=== PATIENT | female | born 1975 | race Caucasian/White ===

== ENCOUNTER 2017-10-29 15:02 | Emergency (ER) | payer OTHER ==
[~2017-10-29] VITALS: Ht 147.3 cm; Wt 99.8 kg
[~2017-10-29 15:02] MED LIST: ACET325 PO; BCP'S; BENZ100A PO; CALCAVITD PO; CEFD300 PO; DIPH50 PO; ERGO400 PO; ESOM20 PO; FAMO20 PO; FAMO40 PO; FISH1000 PO; IBUP200 PO; IBUP400 PO; IBUP800 PO; LANS30EC PO; LEVOTHYROXINE PO; MULVITMIND PO; NORGESTIMATE-E1 EAC1 PO; NORT10 PO; NORT25 PO; Norco 5-325 Ta1 EACH PO; OMEG1CAP30 PO; OMEP20ER PO; OXYACE5T PO; OXYB5 PO; OXYC10ER PO; OXYC5 PO; PRED10 PO; PROACE100 PO; PROC5 PO; PSEU120ER PO; Prinivil10 MG PO; RXLORA1 PO; RXOXYACE PO; Roxicodone5 MG PO; SENN187 PO; SIMV10 PO; SIMV20 PO; SIMV40 PO; TRAM50 PO; TRAZ100 PO; Ultram50 MG PO; VITAMENS; VITB100 PO; Zofran Odt4 MG SL; [UNRECOGNIZED DRUG - OTHER]; [UNRECOGNIZED DRUG - OTHER] PO
[2017-10-29] MEDS ORDERED: Alendronate Sod10 MG PO (15:54)
[2017-10-29] MEDS ORDERED: GABA300 PO (15:54)
[2017-10-29 17:27] LABS: BASOPHILS ABSOLUTE AUTO 0.03 K/mm3 (0.00-0.23); BASOPHILS PERCENT AUTO 0 % (0-2); EOSINOPHILS ABSOLUTE AUTO 0.04 K/mm3 (0.00-0.68); EOSINOPHILS PERCENT AUTO 1 % (0-6); Hematocrit 42.3 % (33.0-51.0); Hemoglobin 13.8 g/dL (11.5-16.0); IMMATURE GRAN ABSOLUTE AUTO 0.02 K/mm3 (0.00-0.10); IMMATURE GRAN PERCENT AUTO 0 % (0-1); LYMPHOCYTES PERCENT AUTO 25 % (21-46); MONOCYTES ABSOLUTE AUTO 0.55 K/mm3 (0.16-1.47); MONOCYTES PERCENT AUTO 7 % (4-13); Mean Corpuscular HGB Conc 32.6 g/dL (31.5-36.5); Mean Corpuscular Volume 89 fL (80-100); Mean Platelet Volume 11.2 fL (9.1-12.4); NEUTROPHILS PERCENT AUTO 68 % (41-73); Platelet Count 248 K/mm3 (150-400); RDW Standard Deviation 42.4 fL (35.1-46.3); Red Blood Cell Count 4.76 M/mm3 (3.80-5.20); White Blood Cell Count 8.44 K/mm3 (4.00-11.30)
[2017-10-29 17:52] LABS: Alanine Aminotransfer (ALT/SGP 22 U/L (12-78); Albumin, Blood 4.1 g/dL (3.4-5.0); Alk Phos 97 U/L (50-136); Anion Gap 8 mmol/L (6-16); Aspartate Aminotrans (AST/SGOT 12 U/L (12-37); Bilirubin, Total 0.4 mg/dL (0.1-1.0); Blood Urea Nitrogen 11 mg/dL (8-24); Bun/Creatinine Ratio 16.4 (12.0-20.0); CO2, Blood 24 mmol/L (21-32); Calcium, Blood 10.1 mg/dL (8.5-10.1); Chloride, Blood 111 mmol/L (98-108); Creatinine, Blood 0.67 mg/dL (0.40-1.00); Globulin, Blood 4.2 g/dL (2.2-4.0); Glomerular Filtration Rate >60 (60-); Glucose, Blood 119 mg/dL (70-99); Potassium, Blood 4.3 mmol/L (3.5-5.5); Sodium, Blood 143 mmol/L (136-145); Total Protein, Blood 8.3 g/dL (6.4-8.2)
[2017-10-29 18:20] LABS: Source, Urine Clean Catch
[2017-10-29 18:24] LABS: Appearance, Urine Clear (Clear); Bilirubin, Urine Neg (Neg); Blood, Urine Neg (Neg); Color, Urine Yellow (P-Yellow); Glucose Qualitative, Urine Neg (Neg); Ketones, Urine Neg (Neg); Leukocyte Esterase, Urine 2+ (Neg); Nitrite, Urine Neg (Neg); Protein, Urine Neg (Neg); Urobilinogen, Urine NORM (Normal)
[2017-10-29 18:39] LABS: Bacteria Rare /hpf; Red Blood Cells, Urine 0-2 /hpf (0-2); Squamous Epithelial Cells Few /hpf (Few)
== END 2017-10-29 19:50 | disposition short-term general hospital (02) ==
LOC: ER 15:02
PROVIDERS: Physician Assistant
DX: R51 Headache (principal); Z88.0 Allergy status to penicillin; Z88.5 Allergy status to narcotic agent; Z88.8 Allergy status to other drugs, medicaments and biological substances; Z88.2 Allergy status to sulfonamides; Z88.1 Allergy status to other antibiotic agents; Z79.899 Other long term (current) drug therapy
CPT/HCPCS: 36415; 70450; 75809; 80053; 81001; 85025; 87086; 93005; 93010; 96361; 96374; 96375; 99285; J1200; J1630; J1885; J7030

== ENCOUNTER → 2019-09-30 | Outpatient (CLI) | payer OTHER ==
[~2019-09-30] MED LIST changes: +Alendronate Sod10 MG PO; +GABA300 PO
== END ==
LOC: LAB SHORT 15:02 → LAB 15:02
DX: R32 Unspecified urinary incontinence (principal)
CPT/HCPCS: 87086

== ENCOUNTER → 2019-10-12 | Outpatient (CLI) | payer OTHER ==
[2019-10-14 15:10] LABS: HPV 16 Negative (Negative); HPV 18 Negative (Negative); HPV OTHER HR TYPES Negative (Negative)
== END | disposition home or self-care (01) ==
LOC: LAB 15:45 → LAB SHORT 15:45
PROVIDERS: Obstetrics & Gynecology
DX: Z01.419 Encounter for gynecological examination (general) (routine) without abnormal findings (principal)
CPT/HCPCS: 87624; G0123

== ENCOUNTER → 2023-07-21 | Outpatient (CLI) | payer OTHER ==
[2023-07-21 17:30] LABS: BASOPHILS ABSOLUTE AUTO 0.03 K/mm3 (0.00-0.23); BASOPHILS PERCENT AUTO 0 % (0-2); EOSINOPHILS ABSOLUTE AUTO 0.11 K/mm3 (0.00-0.68); EOSINOPHILS PERCENT AUTO 1 % (0-6); Hematocrit 45.3 % (33.0-51.0); Hemoglobin 14.8 g/dL (11.5-16.0); IMMATURE GRAN ABSOLUTE AUTO 0.04 K/mm3 (0.00-0.10); IMMATURE GRAN PERCENT AUTO 0 % (0-1); LYMPHOCYTES ABSOLUTE AUTO 2.05 K/mm3 (0.84-5.20); LYMPHOCYTES PERCENT AUTO 23 % (21-46); MONOCYTES ABSOLUTE AUTO 0.55 K/mm3 (0.16-1.47); MONOCYTES PERCENT AUTO 6 % (4-13); Mean Corpuscular HGB 29.2 pg (26.0-34.0); Mean Corpuscular HGB Conc 32.7 g/dL (31.5-36.5); Mean Corpuscular Volume 90 fL (80-100); Mean Platelet Volume 10.5 fL (9.1-12.4); NEUTROPHILS ABSOLUTE AUTO 6.23 K/mm3 (1.96-9.15); NEUTROPHILS PERCENT AUTO 69 % (41-73); Platelet Count 241 K/mm3 (150-400); RDW Standard Deviation 42.3 fL (35.1-46.3); Red Blood Cell Count 5.06 M/mm3 (3.80-5.20); White Blood Cell Count 9.01 K/mm3 (4.00-11.30)
[2023-07-21 17:40] LABS: Albumin, Blood 3.9 g/dL (3.4-5.0); Albumin/Globulin Ratio 0.9 (0.8-1.8); Bilirubin, Total 0.2 mg/dL (0.1-1.0); Bun/Creatinine Ratio 10.6 (12.0-20.0); Calcium, Blood 10.6 mg/dL (8.5-10.1); Creatinine, Blood 0.85 mg/dL (0.40-1.00); Globulin, Blood 4.4 g/dL (2.2-4.0); Potassium, Blood 3.8 mmol/L (3.5-5.5); Total Protein, Blood 8.3 g/dL (6.4-8.2)
== END ==
LOC: LAB 17:24 → LAB SHORT 17:24
PROVIDERS: Physician Assistant
DX: M79.89 Other specified soft tissue disorders (principal)
CPT/HCPCS: 80053; 85025; 85379; 85651; 86140

== ENCOUNTER 2023-07-24 08:02 | Emergency (ER) | payer OTHER ==
[~2023-07-24] VITALS: Ht 149.9 cm; Wt 104.3 kg
[2023-07-24] MEDS ORDERED: AMLO5 PO (08:15)
[2023-07-24] MEDS ORDERED: HYDMOR2 PO (09:45)
[2023-07-24 10:17] VITALS: BP 144/99
== END 2023-07-24 10:35 | disposition home or self-care (01) ==
LOC: ER 08:02
DX: M25.561 Pain in right knee (principal); Z79.899 Other long term (current) drug therapy; Z88.0 Allergy status to penicillin; Z88.2 Allergy status to sulfonamides; Z88.1 Allergy status to other antibiotic agents; Z88.6 Allergy status to analgesic agent; Z88.5 Allergy status to narcotic agent; Z88.8 Allergy status to other drugs, medicaments and biological substances; W01.10XA Fall on same level from slipping, tripping and stumbling with subsequent striking against unspecified object, initial encounter; Y93.89 Activity, other specified
CPT/HCPCS: 73562-RT; 96374; 96375; 96376; 99283-25; A9270

== ENCOUNTER 2023-08-20 08:05 | Emergency (ER) | payer OTHER ==
[~2023-08-20] VITALS: Ht 149.9 cm; Wt 106.6 kg
[~2023-08-20 08:05] MED LIST changes: +AMLO5 PO; +HYDMOR2 PO
[2023-08-20] MEDS ORDERED: ALEN10 PO (09:03)
[2023-08-20] MEDS ORDERED: LEVSOD25 PO (09:03)
[2023-08-20] MEDS ORDERED: NORT25 PO (09:03)
[2023-08-20] MEDS ORDERED: Imitrex25 MG PO (09:04)
[2023-08-20] MEDS ORDERED: NIFE30ER PO (09:04)
[2023-08-20 10:49] LABS: BASOPHILS ABSOLUTE AUTO 0.03 K/mm3 (0.00-0.23); BASOPHILS PERCENT AUTO 0 % (0-2); EOSINOPHILS ABSOLUTE AUTO 0.18 K/mm3 (0.00-0.68); EOSINOPHILS PERCENT AUTO 2 % (0-6); Hematocrit 41.3 % (33.0-51.0); Hemoglobin 13.5 g/dL (11.5-16.0); IMMATURE GRAN ABSOLUTE AUTO 0.04 K/mm3 (0.00-0.10); IMMATURE GRAN PERCENT AUTO 0 % (0-1); LYMPHOCYTES ABSOLUTE AUTO 1.96 K/mm3 (0.84-5.20); LYMPHOCYTES PERCENT AUTO 17 % (21-46); MONOCYTES ABSOLUTE AUTO 0.91 K/mm3 (0.16-1.47); MONOCYTES PERCENT AUTO 8 % (4-13); Mean Corpuscular HGB Conc 32.7 g/dL (31.5-36.5); Mean Corpuscular Volume 89 fL (80-100); Mean Platelet Volume 10.8 fL (9.1-12.4); NEUTROPHILS ABSOLUTE AUTO 8.39 K/mm3 (1.96-9.15); NEUTROPHILS PERCENT AUTO 73 % (41-73); Platelet Count 257 K/mm3 (150-400); RDW Coefficient Variation 13.4 % (11.7-14.2); RDW Standard Deviation 43.5 fL (35.1-46.3); Red Blood Cell Count 4.66 M/mm3 (3.80-5.20); White Blood Cell Count 11.51 K/mm3 (4.00-11.30)
[2023-08-20 11:12] LABS: Albumin, Blood 3.8 g/dL (3.4-5.0); Albumin/Globulin Ratio 0.9 (0.8-1.8); Bilirubin, Total 0.3 mg/dL (0.1-1.0); Bun/Creatinine Ratio 13.5 (12.0-20.0); Calcium, Blood 10.6 mg/dL (8.5-10.1); Creatinine, Blood 0.67 mg/dL (0.40-1.00); Globulin, Blood 4.3 g/dL (2.2-4.0); Potassium, Blood 3.9 mmol/L (3.5-5.5); Total Protein, Blood 8.1 g/dL (6.4-8.2)
[2023-08-20 15:04] LABS: Source, Urine Voided
[2023-08-20 15:14] LABS: Appearance, Urine Clear (Clear); Bilirubin, Urine Neg (Neg); Blood, Urine Neg (Neg); Color, Urine Yellow (P-Yellow); Glucose Qualitative, Urine Neg (Neg); Ketones, Urine Neg (Neg); Leukocyte Esterase, Urine Neg (Neg); Nitrite, Urine Neg (Neg); Protein, Urine 1+ (Neg); Urobilinogen, Urine 1+ (Normal)
[2023-08-20] MEDS ORDERED: LIDO700A20 TOP (18:48)
[2023-08-20] MEDS ORDERED: Methocarbamol500 MG PO (18:48)
[2023-08-20 19:30] VITALS: BP 146/97
== END 2023-08-20 19:55 | disposition home or self-care (01) ==
LOC: ER 08:05
PROVIDERS: Emergency Medicine
DX: R10.9 Unspecified abdominal pain (principal); N20.0 Calculus of kidney; G80.9 Cerebral palsy, unspecified; Z88.0 Allergy status to penicillin; Z88.5 Allergy status to narcotic agent; Z88.2 Allergy status to sulfonamides; Z88.8 Allergy status to other drugs, medicaments and biological substances; Z88.6 Allergy status to analgesic agent; Z79.890 Hormone replacement therapy; Z79.899 Other long term (current) drug therapy
CPT/HCPCS: 74177; 80053; 83690; 84703; 85025; 96361; 96374-59; 96375; 96376; 99284-25; A9270; J2270; J2405; J7030; J7120; P9612; Q9967

== ENCOUNTER 2023-08-22 16:34 | Inpatient (IN) | payer OTHER ==
[~2023-08-22] VITALS: Ht 149.9 cm; Wt 110.5 kg
[~2023-08-22 16:34] MED LIST changes: +ALEN10 PO; +Imitrex25 MG PO; +LEVSOD25 PO; +LIDO700A20 TOP; +Methocarbamol500 MG PO; +NIFE30ER PO
[2023-08-22 17:39] LABS: BASOPHILS ABSOLUTE AUTO 0.05 K/mm3 (0.00-0.23); BASOPHILS PERCENT AUTO 0 % (0-2); EOSINOPHILS ABSOLUTE AUTO 0.09 K/mm3 (0.00-0.68); EOSINOPHILS PERCENT AUTO 1 % (0-6); Hematocrit 44.2 % (33.0-51.0); Hemoglobin 14.1 g/dL (11.5-16.0); IMMATURE GRAN PERCENT AUTO 1 % (0-1); LYMPHOCYTES ABSOLUTE AUTO 1.33 K/mm3 (0.84-5.20); LYMPHOCYTES PERCENT AUTO 9 % (21-46); MONOCYTES ABSOLUTE AUTO 1.63 K/mm3 (0.16-1.47); MONOCYTES PERCENT AUTO 11 % (4-13); Mean Corpuscular HGB 28.7 pg (26.0-34.0); Mean Corpuscular HGB Conc 31.9 g/dL (31.5-36.5); Mean Corpuscular Volume 90 fL (80-100); Mean Platelet Volume 10.7 fL (9.1-12.4); NEUTROPHILS ABSOLUTE AUTO 11.93 K/mm3 (1.96-9.15); NEUTROPHILS PERCENT AUTO 79 % (41-73); Platelet Count 267 K/mm3 (150-400); RDW Coefficient Variation 13.4 % (11.7-14.2); RDW Standard Deviation 43.8 fL (35.1-46.3); Red Blood Cell Count 4.91 M/mm3 (3.80-5.20); White Blood Cell Count 15.13 K/mm3 (4.00-11.30)
[2023-08-22 18:08] LABS: Albumin, Blood 3.6 g/dL (3.4-5.0); Albumin/Globulin Ratio 0.8 (0.8-1.8); Bilirubin, Total 0.6 mg/dL (0.1-1.0); Calcium, Blood 10.6 mg/dL (8.5-10.1); Creatinine, Blood 0.5 mg/dL (0.40-1.00); Globulin, Blood 4.5 g/dL (2.2-4.0); Magnesium, Blood 2.2 mg/dL (1.6-2.4); Potassium, Blood 3.7 mmol/L (3.5-5.5); Total Protein, Blood 8.1 g/dL (6.4-8.2)
[2023-08-23 00:43] LABS: Influenza A, PCR NEGATIVE (NEGATIVE); Influenza B, PCR NEGATIVE (NEGATIVE); Resp Syncytial Virus, PCR NEGATIVE (NEGATIVE); SARS-Cov-2 (COVID-19) PCR, MMC NEGATIVE (NEGATIVE)
[2023-08-23 10:57] LABS: Source, Urine Clean Catch
[2023-08-23 11:12] LABS: Bilirubin, Urine Neg (Neg); Blood, Urine Neg (Neg); Glucose Qualitative, Urine Neg (Neg); Ketones, Urine 4+ (Neg); Leukocyte Esterase, Urine Neg (Neg); Nitrite, Urine Neg (Neg); Protein, Urine 2+ (Neg); Specific Gravity, Urine 1.015 (1.003-1.022); Urobilinogen, Urine 1+ (Normal); pH, Urine 6.5 (5.0-8.0)
[2023-08-23 11:28] LABS: Appearance, Urine Clear (Clear); Color, Urine Yellow (P-Yellow)
[2023-08-23 11:31] LABS: Bacteria Few /hpf; Calcium Oxalate Crystals Rare /hpf; Red Blood Cells, Urine 0-2 /hpf (0-2); Squamous Epithelial Cells Few /hpf (Few)
[2023-08-23 15:22] VITALS: BP 139/104
--- NOTE | 2023-08-23 17:39 | NUR ---
ADMISSION - LATE ENTRY: PT ARRIVED TO MEDICAL FLOOR 304 @1512 VIA GURNEY. AT THAT TIME PT HAD ABX INFUSING AND WAS ON 1L. PT CURRENTLY STILL ON 1L NC MAINTAINING SATS >95%. LIMITED RANGE IN ALL EXTREMETIES. PUREWICK IN PLACE DRAINING YELLOW URINE TO GRAVITY. SCAB ON R. KNEE AND R. ELBOW HEALING. SKIN TEAR FROM FALL ON L. KNEE AND L. ELBOW. DRESSINGS APPLIED TO SKIN TEARS. PHOTOS IN CHART. IN IN VIANEY FLUSHES WELL W/O COMPLICATIONS. PT ON BEDREST AT THIS TIME D/T WEAKNESS, NUMBNESS, AND PT EVAL INCOMPLETE. CALL LIGHT IN REACH. BED IN LOWEST POSITION.
[2023-08-23 19:29] VITALS: BP 131/90
--- NOTE | 2023-08-23 22:07 | NUR ---
DRIVER LICENSE EXAMINER CALL TELEPHONE ORDER FROM FAYE KEARNS DRIVER LICENSE EXAMINER FOR DILAUDID 2MG PO [id number] PRN. PT SAID THAT THIS IS WHAT SHE TAKES AT HOME AND THAT SHE TOLERATES IT WELL. READ BACK DONE AND ORDER ENTERED INTO [employer].
[2023-08-24 03:15] VITALS: BP 142/78
--- NOTE | 2023-08-24 04:42 | NUR ---
SHIFT SUMMARY MS MUSA HAS BEEN ON 1L NC OXYGEN OVERNIGHT. ON CONTINUOUS PULSE OX IN THE LOW 90S WITH HEART RATE CONSISTANTLY ~120BPM. ST, NO CALLS FROM EP SPECIALIST. TURNED AND REPOSITIONED WITH 2 STAFF ASSISTANCE. SHE HAS WEAK WAREHOUSE HELPER TO BOTH HANDS AND SHE SAID THE HAND SWELLING IS UNUSUAL FOR HER. SHE DESCRIBED LOW LEVEL CHRONIC BACK PAIN AND HAS NOT REQUESTED ANY PAIN MEDS OVERNIGHT. BED LOW, CALL LIGHT IN REACH.
[2023-08-24 05:37] LABS: BASOPHILS ABSOLUTE AUTO 0.02 K/mm3 (0.00-0.23); BASOPHILS PERCENT AUTO 0 % (0-2); EOSINOPHILS ABSOLUTE AUTO 0.32 K/mm3 (0.00-0.68); EOSINOPHILS PERCENT AUTO 3 % (0-6); IMMATURE GRAN ABSOLUTE AUTO 0.06 K/mm3 (0.00-0.10); IMMATURE GRAN PERCENT AUTO 1 % (0-1); LYMPHOCYTES ABSOLUTE AUTO 1.84 K/mm3 (0.84-5.20); LYMPHOCYTES PERCENT AUTO 19 % (21-46); MONOCYTES PERCENT AUTO 9 % (4-13); Mean Corpuscular HGB 29.2 pg (26.0-34.0); Mean Corpuscular HGB Conc 32.4 g/dL (31.5-36.5); Mean Corpuscular Volume 90 fL (80-100); NEUTROPHILS ABSOLUTE AUTO 6.44 K/mm3 (1.96-9.15); NEUTROPHILS PERCENT AUTO 67 % (41-73); Platelet Count 252 K/mm3 (150-400); RDW Coefficient Variation 13.5 % (11.7-14.2); Red Blood Cell Count 4.11 M/mm3 (3.80-5.20); White Blood Cell Count 9.58 K/mm3 (4.00-11.30)
[2023-08-24 06:03] LABS: Bun/Creatinine Ratio 16.8 (12.0-20.0); Calcium, Blood 9.6 mg/dL (8.5-10.1); Creatinine, Blood 0.65 mg/dL (0.40-1.00); Potassium, Blood 3.6 mmol/L (3.5-5.5)
[2023-08-24 07:54] VITALS: BP 104/63
[2023-08-24 16:30] VITALS: BP 129/93
--- NOTE | 2023-08-24 18:22 | NUR ---
SHIFT SUMMARY: PT A&O X4. PLEASANT AND COOPERATIVE WITH CARE. PT RECEIVED XR SHUNOGRAM PANEL THIS SHIFT. RESULTS IN CHART. MRI ORDERED FOR SHUNT KINKING AND HX OF HYDROCEPHALUS. WILL LIKELY BE COMPLETED TOMORRROW. PT C/O SWOLLEN HANDS THIS AM. DR. DOVER AWARE. PT ALSO C/O 02/10 HEAD PAIN. MEDICATED PER EMAR. PT UNABLE TO WORK WITH PT THIS SHIFT PT WAS IN IMAGING AT TIME OF ATTEMPT. WILL REATTEMPT TOMORROW. IV IN L. CHEST BAD PRIOR TO ZITHROMAX IV. SHIP SCRAPERNORRIS PLACED POWERGLIDE IN VIANEY. DRAWS WELL, CURRENTLY INFUSING ABX. PUREWICK IN PLACE FOR INCONTINENCE. CALL LIGHT IN REACH. BED IN LOWEST POSITION. WILL REPORT TO ONCOMING RN.
[2023-08-24 20:01] VITALS: BP 168/103
[2023-08-25 04:25] VITALS: BP 162/95
--- NOTE | 2023-08-25 05:18 | NUR ---
PATIENT IS ALERT AND ORIENTED. WITH OXYGEN AT 1 LPM/NASAL CANNULA. ON TELE. NOTED SKIN TEAR ON ELBOWS AND KNEE AND SWEELING OF EXTREMETIES. FOR MRI OF HEAD TODAY. COMPLAINT OF PAIN. NEEDS ATTENDED. POSITIONED COMFORTABLY. SLEPT FAIRLY. CALL LIGHT WITHIN PATIENT'S REACH. WILL CONTINUE TO MONITOR.
[2023-08-25 07:37] VITALS: BP 139/87
--- NOTE | 2023-08-25 13:52 | NUR ---
Upon receiving a referral for spiritual care, I visited the patient. She immediately explains about the medical history, her current medical problems and the plan of care moving forward. She tells me that a transfer to a hospital [place] may be a next step in that care for her neurological issues. She then talks about her strong [employer] roman catholic beliefs and her desire to shine light everywhere that she goes. She also discusses that unless some of the medical issues are resolved she may need to give up some of her housing independence. I normalize her concerns and fears, reinforce her helpful attitudes and persectives and provide therapeutic listening and prayer. Patient responded well and showed signs of greater peace.
--- NOTE | 2023-08-25 15:37 | NUR ---
FAXED [facility] THIS AM FOR MEDICAL RECORDS REGARDING SHUNT PLACEMENT SEVERAL YEARS AGO IN ORDER TO COMPLETE MRI HERE. RECEIVED RECORDS AND FAXED DOWN TO MRI. SOUND TRUCK OPERATOR AWARE. RECORDS PLACED IN PT CHART.
[2023-08-25 17:15] VITALS: BP 122/84
--- NOTE | 2023-08-25 19:18 | NUR ---
SHIFT SUMMARY: PT A&O X4. PLEASANT AND COOPERATIVE WITH ALL CARE. PT UNABLE TO RECEIVE MRI THIS SHIFT. RECORDS FAXED BACK TO THIS RN BUT DOES NOT STATE TYPE OF STENT PLACED IN . WINDSHIELD TECHNICIAN STATED PT WILL HAVE TO MAKE APPOINTMENT. NO OTHER ACUTE CHANGES THIS SHIFT. PT TOLERATING IV ABX WELL. HANDS AND FEET 2+ EDEMEDOUS. PT DID NOT WORK THIS PT THIS SHIFT THEY WANTED TO FIND OUT MRI RESULTS FIRST. CALL LIGHT IN REACH. BED IN LOWEST POSITION.
[2023-08-25 21:33] VITALS: BP 129/75
[2023-08-26 03:01] VITALS: BP 123/80
--- NOTE | 2023-08-26 04:53 | NUR ---
PATIENT IS ALERT AND ORIENTED. ON CONTINUOUS OXYGEN AT 1 LPM/NASAL CANNULA. WITH TELE. WITH PUREWICK PLACED. COMPLAINT OF PAIN, MEDICATED WELL. REPOSITIONED. SLEPT WELL. NEEDS ATTENDED. CALL LIGHT WITHIN PATIENT'S REACH. WILL CONTINUE TO MONITOR.
[2023-08-26 08:07] VITALS: BP 135/92
[2023-08-26 15:48] VITALS: BP 137/82
--- NOTE | 2023-08-26 17:21 | NUR ---
SHIFT SUMMARY AWAITING MRI TODAY. IMAGING WORKING ON GETTING AHOLD OF [employer] REP SO THAT PERFORMANCE LEVEL CAN BE CHECKED AFTER MRI IS COMPLETED. MRI DELAYED FOR NOW. LASIX STARTED TODAY ORDERD TO HELP WITH EXTREMITY EDEMA. GOOD URINE OUTPUT SINCE ADMINISTERED. NO OTHER ACUTE CHANGES IN ASSESSMENT AT THIS TIME. VS REVIEWED. NO OTHER ACUTE CHANGES IN ASSESSMENT AT THIS TIME.
[2023-08-26 20:08] VITALS: BP 146/81
--- NOTE | 2023-08-27 05:21 | NUR ---
Shift Summary Ms. Nunes slept most of the night. She is alert and oriented x 4. Her respirations are regular and unlabored. Lung sounds clear. We did have to put her back on 2 L of oxygen per NC due to oxygen saturation dropping. She is on tele and in a sinus rythm at 88. She has a purwick in place with with yellow urine draining. Bed is in low position with call light in reach.
[2023-08-27 05:24] VITALS: BP 139/113
[2023-08-27 05:25] VITALS: BP 144/87
[2023-08-27 07:27] VITALS: BP 143/93
[2023-08-27 08:37] LABS: BASOPHILS ABSOLUTE AUTO 0.04 K/mm3 (0.00-0.23); BASOPHILS PERCENT AUTO 0 % (0-2); EOSINOPHILS ABSOLUTE AUTO 0.48 K/mm3 (0.00-0.68); EOSINOPHILS PERCENT AUTO 5 % (0-6); Hematocrit 38.3 % (33.0-51.0); Hemoglobin 12.2 g/dL (11.5-16.0); IMMATURE GRAN ABSOLUTE AUTO 0.07 K/mm3 (0.00-0.10); IMMATURE GRAN PERCENT AUTO 1 % (0-1); LYMPHOCYTES ABSOLUTE AUTO 1.93 K/mm3 (0.84-5.20); LYMPHOCYTES PERCENT AUTO 21 % (21-46); MONOCYTES ABSOLUTE AUTO 0.82 K/mm3 (0.16-1.47); MONOCYTES PERCENT AUTO 9 % (4-13); Mean Corpuscular HGB 28.8 pg (26.0-34.0); Mean Corpuscular HGB Conc 31.9 g/dL (31.5-36.5); Mean Corpuscular Volume 90 fL (80-100); Mean Platelet Volume 10.8 fL (9.1-12.4); NEUTROPHILS ABSOLUTE AUTO 5.68 K/mm3 (1.96-9.15); NEUTROPHILS PERCENT AUTO 63 % (41-73); Platelet Count 259 K/mm3 (150-400); RDW Coefficient Variation 13.2 % (11.7-14.2); RDW Standard Deviation 43.1 fL (35.1-46.3); Red Blood Cell Count 4.24 M/mm3 (3.80-5.20); White Blood Cell Count 9.02 K/mm3 (4.00-11.30)
[2023-08-27 09:18] LABS: Bun/Creatinine Ratio 25.6 (12.0-20.0); Calcium, Blood 9.8 mg/dL (8.5-10.1); Creatinine, Blood 0.55 mg/dL (0.40-1.00); Potassium, Blood 4.1 mmol/L (3.5-5.5)
[2023-08-27 14:47] VITALS: BP 125/86
--- NOTE | 2023-08-27 18:06 | NUR ---
NO ACUTE CHANGES, WATING FOR BED AVAIALBLITY IN [place] WITH NEUROLOGIST, MRI RESULTS FROM [facility] REQUESTED PER DR MI, MRI NEEDED TO FIX THE KINKED SHUNT, THE SHUNT HAS TO BE REPAIRED BY A NEUROSURGEREON IN [place], REPORTED TO MOTHER DEWAYNE, REPOSITIONED THROUGH THE DAY, PT HOLDING DUE TO THE KINKED SHUNT POSSIBLE SIDE EFFECTS OR WORSENING, DIM LUNG SOUNDS, TELE ONE 5 SECOND RUN OF VTACH AT 170 AND RESOLVED INDEPENDANTLY, PATIENT WAS SLEEPING AT THE TIME. CALL LIGHT WITH IN REACH, WILL RELAY TO PM ORIANA
[2023-08-27 19:52] VITALS: BP 128/79
[2023-08-28 05:04] VITALS: BP 143/86
--- NOTE | 2023-08-28 05:15 | NUR ---
Shift Summary: November is alert and oriented x 4. Respirations are regular and unlabored. Lung sounds clear. She is on oxygen at 2L per NC. She had a large formed BM on this shift. She has a purwick in place with yellow urine noted. She is on tele in a sinus rhythm at 90. No complaints of pain. Bed is in low position with call light in reach.
[2023-08-28 06:53] LABS: BASOPHILS ABSOLUTE AUTO 0.03 K/mm3 (0.00-0.23); BASOPHILS PERCENT AUTO 0 % (0-2); EOSINOPHILS PERCENT AUTO 4 % (0-6); Hematocrit 44.5 % (33.0-51.0); Hemoglobin 14.4 g/dL (11.5-16.0); IMMATURE GRAN ABSOLUTE AUTO 0.05 K/mm3 (0.00-0.10); IMMATURE GRAN PERCENT AUTO 1 % (0-1); LYMPHOCYTES ABSOLUTE AUTO 2.06 K/mm3 (0.84-5.20); LYMPHOCYTES PERCENT AUTO 20 % (21-46); MONOCYTES ABSOLUTE AUTO 0.78 K/mm3 (0.16-1.47); MONOCYTES PERCENT AUTO 8 % (4-13); Mean Corpuscular HGB 29.1 pg (26.0-34.0); Mean Corpuscular HGB Conc 32.4 g/dL (31.5-36.5); Mean Corpuscular Volume 90 fL (80-100); Mean Platelet Volume 10.5 fL (9.1-12.4); NEUTROPHILS ABSOLUTE AUTO 6.78 K/mm3 (1.96-9.15); NEUTROPHILS PERCENT AUTO 67 % (41-73); Platelet Count 258 K/mm3 (150-400); RDW Coefficient Variation 13.2 % (11.7-14.2); RDW Standard Deviation 42.5 fL (35.1-46.3); Red Blood Cell Count 4.95 M/mm3 (3.80-5.20)
[2023-08-28 07:09] LABS: Bun/Creatinine Ratio 23.6 (12.0-20.0); Calcium, Blood 10.2 mg/dL (8.5-10.1); Creatinine, Blood 0.64 mg/dL (0.40-1.00); Potassium, Blood 4.3 mmol/L (3.5-5.5)
[2023-08-28 08:11] VITALS: BP 153/113
--- NOTE | 2023-08-28 16:11 | NUR ---
Quick spiritual care visit. Provided prayer for an open bed at [facility] and gave a blessing. PAtient responded well and showed signs of an elevated mood.
[2023-08-28 17:21] VITALS: BP 146/99
--- NOTE | 2023-08-28 17:51 | NUR ---
PATIENT A/OX4, ABLE TO MAKE NEEDS KNOWN. POWERGLIDE TO VIANEY WNL AND SL. TOLERATING REGULAR DIET. VSS, ON RA. HEADACHE THROUGHOUT THE DAY, IMPROVED WITH IMITREX. PATIENT CONTINUES TO HAVE CONCERNS WITH NUMBNESS AND WEAKNESS IN LEGS. UPSET AND CRYING THIS EVENING BECAUSE SHE FEELS SHE DOESN'T HAVE ANY ANSWERS TO WHY SHE BECAME WEAK SO FAST. OPEN TO TRANSFERRING TO SNF FOR PT/OT TO REGAIN HER STRENGTH.
--- NOTE | 2023-08-28 18:41 | NUR ---
REVIEWED ASSESSMENT DOCUMENTATION CHARTED BY JILLIAN MONROE, STUDENT NURSE AND AGREE WITH HER ASSESSMENT OF THIS PATIENT.
[2023-08-28 19:58] VITALS: BP 135/103
--- NOTE | 2023-08-29 03:33 | NUR ---
Shift Summary Patient is alert and oriented x 4. Respirations are regular and unlabored. Lung sound clear. Patient is on oxygen at 2 liters per nasal cannula. Bowel sounds are active. She has a power glide in her right upper arm. It flushes without difficulty. No redness or swelling at site. She has a purwick in place and is voiding yellow urine. She is on tele in a sinus rhythm at 84. Patient had a migraine earlier today but denies pain on this shift. Call light is in reach and bed in low position. Patient is suppose to transfer to a Rehab Facility tomorrow.
[2023-08-29 03:52] VITALS: BP 119/74
[2023-08-29 07:43] VITALS: BP 157/92
--- NOTE | 2023-08-29 15:30 | NUR ---
SHIFT SUMMARY: PT IS A 48 YEAR OLD FEMALE HERE AWAITING A BED AT [facility] FOR FURTHER EVALUATION/CARE DUE TO OF CHANGE IN CONDITION. SHE HAS CEREBRAL PALSY AND HYDROCEPHALUS WITH PRESS TECHNICIAN SHUNT AND IS HAVING INCREASED WEAKNESS AND DECREASED MOBILITY FROM HER BASELINE. SHE HAS BEEN DOING WELL TODAY WITH NO COMPLAINTS AND OVERALL MOOD IS WELL. WAS TOLD YESTERDAY 08/28/23 SHE HAD AN EMOTIONAL DAY. SPOKE WITH PATIENT'S MOTHER AND GAVE HER AN UPDATE. SHE IS IN BED, CALL LIGHT WITHIN REACH, NO SIGNS OR SYMPTOMS OF DISTRESS. PLAN OF CARE ONGOING.
[2023-08-29 15:37] VITALS: BP 131/89
[2023-08-29 19:18] VITALS: BP 140/104
--- NOTE | 2023-08-30 00:36 | NUR ---
DURING CN SHIFT REPORT TONIGHT, DR. MILNER RELAYED PT NEEDED AN MRI FROM ANOTHER FACILITY, OUR MRI DIDN'T HAVE THE CAPABILITY SHE NEEDED. DR. MILNER DIDN'T SAY PT NEEDED A COBRA TRANSFER. I CLARIFIED WITH THE OTHER CN'S, PT WOULD NEED TRANSPORT TO ANOTHER FACILITY (IF AVAILABLE) FOR AN MRI, AND THEN WOULD RETURN HERE POST MRI. I RECEIVED A TELEPHONE CALL FROM [facility] [phone] THAT [facility] HAD A NEUROLOGY BED AVAILABLE. I REPORTED TO HER, IT WASN'T MY UNDERSTANDING THAT THIS PT NEEDED A COBRA TRANSFER BUT AN MRI. I REPORTED I WOULD DISCUSS WITH THE COVERING AND GET BACK TO HER. I REVIEWED 'S NOTES AND CM NOTES AND THEN SPOKE TO DR. TYSON. DR. TYSON WAS AWARE THAT PT NEEDED AN MRI, BUT WASN'T AWARE OF A COBRA TRANSFER. HE ALSO REVIEWED THE NOTES AND CM NOTES. DR. TYSON DISCUSSED FURTHER WITH DR. VALLADARES. DR. VALLADARES SPOKE TO ESTEBAN CORTÉS. MILANA REPORTED HE WOULD DOCUMENT THE CONVERSATION HE HAD WITH DR. VALLADARES. REPORT IS WE WILL HOLD OFF ON A NEUROLOGY BED TONIGHT AND SEEK FURTHER CLARIFICATION IN AM. I SPOKE TO PT'S NURSE, & CONTACTED [facility], , [facility] TO HOLD ON A BED AND SHE REPORTED IF A BED IS NEEDED WE WILL NEED TO CONTACT HER AGAIN. I WILL REPORT THIS TO ONCOMING CN'S. I ALSO SPOKE TO SJ, SALES REPRESENTATIVE HEALTH INSURANCE AND RELAYED THE ABOVE INFORMATION. I SPOKE TO THE PT AND RELAYED THE CURRENT PLAN ABOVE, AND THAT WE WILL REPORT THIS INFORMATION TO THE ONCOMING DAY SHIFT CN'S.
[2023-08-30 03:08] VITALS: BP 130/87
--- NOTE | 2023-08-30 04:30 | NUR ---
SHIFT ANIA, PT RESTING IN BED, THERE WAS SOME TALK OF PT BEING TRANFRED TO HAVE MRI AND NEURO CONSULT OR PT TO BE DC TO SNF FOR STRENGTHING. CALL ABOUT OPEN BED AT [facility], WITH POSSIBLE TRANSFER THIS NIGHT. MUCH CONFUSION AND DISCUSION ABOUT IF PT WAS SUPPOSED TO GO TONIGHT. PT WANTNG TO GO BUT NOT WANTING ANY POSSIBLE [place] NOT COVRED BY INSURANCE. SO WATING FOR LATER TODAY TO DISCUSE WITH DR TO WHAT THE PLAN IS TO BE. CALL LIGHT IN REACH.
--- NOTE | 2023-08-30 05:11 | NUR ---
BEGINNING OF SHIFT DR. MILNER CAME TO CHARGE REPORT AND EXPLAINED THAT THIS PT MAY BE ABLE TO BE TRANSFERED TO A HOSPITAL WITH MRI CAPABILITY SPECIFIC TO HER BECAUSE OF A DIRECTOR HYDROGEN STORAGE ENGINEERING SHUNT SHE HAS. HE SAID THE TRANSFER WAS SPECIFICALLY FOR THE MRI AND SHE WOULD THEN BE RETURNED TO OUR HOSPITAL. LATER IN THE SHIFT THE TRANSFER CENTER CALLED AND REPORTED NEUROLOGY BED AVAILABILITY AT [facility]. SHE WAS UNDER THE IMPRESSION THAT THIS WOULD BE A COBRA TRANSFER FOR AN INPT BED. AFTER REVIEW OF ALL THE PROGRESS NOTES, NURSING NOTES AND DISCUSSION WITH THE NURSING PARACHUTE RIGGER, IT WAS DEEMED THAT WE WOULD NOT PURSUE THE COBRA TRANSFER. A BIT LATER DR. VALLADARES CALLED THE BAKERY WORKER AND I SPOKE WITH ABOUT THE MATTER. HE WAS NOT INFORMED OF THE SITUATION, BUT SAID HE WAS WILLING TO SET UP THE COBRA TRANSFER IF NEEDED. HE ALSO AGREED THAT THE BEST COURSE OF ACTION WOULD BE TO WAIT UNTIL DAY SHIFT TO OBTAIN FURTHER CLARIFICATION.
[2023-08-30 07:27] VITALS: BP 137/93
[2023-08-30 17:10] VITALS: BP 149/90
--- NOTE | 2023-08-30 17:32 | NUR ---
SHIFT SUMMARY: PATIENT A/OX4, PLEASANT AND COOPERATIVE c CARE. PATIENT USES CALL LIGHT APPROPRIATELY AND ABLE TO MAKE NEEDS KNOWN. PATIENT REPORTS CHRONIC BACK PAIN WELL, CONTROLLED c EMAR SCHEDULED MEDS. PATIENT REPORTS INCREASINGLY WEAK TO ALL EXTREMITIES FOR THE PAST WEEKS AND HAD EPISODE OF FALLS AT HOME. PATIENT DENIES CP/PRESSURE, N/V, DIZZINESS, AND SOB. PATIENT ON REGULAR DIET, 1:1 FEEDER. PATIENT USES BEDPAN FOR BOWELS c 2 MAX ASSIST TO ROLL AND PUREWICK IN PLACED FOR BLADDER. PATIENT REPOSITIONED T/O SHIFT. VITAL SIGNS REVIEWED. POWERGLIDE TO VIANEY SALINE LOCKED. PATIENT STILL AWAITING FOR BED AVAILABILITY AT [facility]. CALL LIGHT IN REACH.
[2023-08-30 20:15] VITALS: BP 144/84
[2023-08-30 21:31] VITALS: BP 144/84
--- NOTE | 2023-08-30 23:57 | NUR ---
PT BEING TRANSFRED TO [facility] IN [facility]. PT LEFT FLOOR AT 2310. PT ON EMS STREACHER ACCOMPANIED BY 2 EMS PERSONS. PTS POSSESIONS GOING WITH PT ON STREACHER. PTS MOTHER CALLED WITH HELP SO PT COULD TALK TO HER, MOTHER AWARE OF PT TRANSFER TO [facility]. CALLED RECIVING RN AND REPORT WAS GIVEN. PT GIVEN HS MEDS BEFORE TRANSPORT.
== END 2023-08-30 23:11 | disposition short-term general hospital (02) | DRG 871 ==
LOC: ER 16:34 → MEDS 08-23 11:53
PROVIDERS: Internal Medicine; Physician Assistant; Student in an Organized Health Care Education/Training Program; ADMIT Family Medicine
DX: A41.9 Sepsis, unspecified organism (principal); J18.9 Pneumonia, unspecified organism; J96.01 Acute respiratory failure with hypoxia; J98.11 Atelectasis; R65.20 Severe sepsis without septic shock; G80.9 Cerebral palsy, unspecified; M48.02 Spinal stenosis, cervical region; I10 Essential (primary) hypertension; E03.9 Hypothyroidism, unspecified; E78.5 Hyperlipidemia, unspecified; R00.0 Tachycardia, unspecified; R29.6 Repeated falls; Q03.1 Atresia of foramina of Magendie and Luschka; G47.33 Obstructive sleep apnea (adult) (pediatric); R22.33 Localized swelling, mass and lump, upper limb, bilateral; E87.70 Fluid overload, unspecified; Z98.2 Presence of cerebrospinal fluid drainage device; Z88.0 Allergy status to penicillin; Z88.1 Allergy status to other antibiotic agents; Z88.2 Allergy status to sulfonamides; Z88.6 Allergy status to analgesic agent; Z88.5 Allergy status to narcotic agent; Z88.8 Allergy status to other drugs, medicaments and biological substances; Z79.890 Hormone replacement therapy; Z79.83 Long term (current) use of bisphosphonates; Z11.52 Encounter for screening for COVID-19; R10.9 Unspecified abdominal pain; N20.0 Calculus of kidney
CPT/HCPCS: 0241U; 36415; 70250; 70450; 71045; 74018; 74177; 80048; 80053; 81001; 83605; 83690; 83735; 83880; 84145; 84703; 85025; 87040; 93005; 93010; 93306; 94760; 94762; 96361; 96365; 96374-59; 96375; 96376; 97110; 97162; 97530; 99284-25; 99285-25; A9270; C1751; J0456; J0696; J1650; J1940; J2270; J2405; J7030; J7050; J7120; P9612; Q9967